=== PATIENT | male | born 1955 | race Caucasian/White ===

== ENCOUNTER → 2019-08-15 | Outpatient (REF) | payer MEDICARE, OTHER ==
[2019-08-15 18:28] LABS: APPEARANCE, URINE HAZY (CLEAR); BACTERIA, URINE AUTO NEGATIVE (NEGATIVE); BILIRUBIN, URINE AUTO NEGATIVE (NEGATIVE); BLOOD, URINE BLOOD 3+ (NEGATIVE); COLOR, URINE YELLOW (YELLOW); GLUCOSE, URINE (UA) AUTO NEGATIVE (NEGATIVE); KETONE, URINE AUTO NEGATIVE (NEGATIVE); LEUKOCYTE ESTERASE, URINE AUTO NEGATIVE (NEGATIVE); NITRITE, URINE AUTO NEGATIVE (NEGATIVE); PROTEIN, URINE AUTO NEGATIVE (NEGATIVE); RBC, URINE AUTO TNTC /HPF (0-3); SPECIFIC GRAVITY URINE AUTO 1.013 (1.002-1.035); SQUAMOUS EPITHELIAL CELL UR AU 0 /HPF (0-6); UROBILINOGEN, URINE AUTO 0.2 mg/dL (0.0-2.0); WBC, URINE AUTO 3 /HPF (0-3)
== END ==
LOC: M SMT 16:55
PROVIDERS: ATTEND Urology
DX: R31.0 Gross hematuria (principal)
CPT/HCPCS: 81001; 87086; G0463

== ENCOUNTER 2019-10-18 11:32 | Day surgery (SDC) | payer MEDICARE ==
[~2019-10-18] VITALS: Ht 170.2 cm; Wt 51.3 kg
[~2019-10-18 11:32] MED LIST: LR 1,000 ML IV ONE; ceFAZolin SOD 2 GM in IV 1 EA IV ONE
[2019-10-18] MEDS ORDERED: propofoL 200 MG/20 ML VIAL As Ordered ONE (14:47)
[2019-10-18] MEDS ORDERED: dexameTHASONE 4 MG/ML 1ML VIAL (J1100) As Ordered ONE (14:47)
[2019-10-18] MEDS ORDERED: ONDANSETRON 4MG/2ML VIAL (J2405) As Ordered ONE (14:47)
[2019-10-18] MEDS ORDERED: LIDOCAINE 2% INJ 100 MG/5 ML SDV (FOR ANES.) As Ordered ONE (14:47)
[2019-10-18] MEDS ORDERED: fentaNYL 100 MCG/2 ML INJECTION (J3010) As Ordered ONE ×2 (14:47→16:15)
[2019-10-18] MEDS ORDERED: MIDAZOLAM INJ 2 MG/2 ML VIAL (J2250) As Ordered ONE (14:47)
[2019-10-18] MEDS ORDERED: ROCURONIUM BROMIDE 50 MG/5 ML VIAL As Ordered ONE (14:48)
[2019-10-18] MEDS ORDERED: SUGAMMADEX SODIUM 500 MG/5 ML VIAL (BRIDION) As Ordered ONE (16:15)
[2019-10-18] MEDS ORDERED: ACETAMINOPHEN TAB 650MG DOSE (2X325MG) PO PRN (17:15)
[2019-10-18] MEDS ORDERED: LR 1,000 ML IV SCH (17:15)
[2019-10-18] MEDS ORDERED: fentaNYL 100 MCG/2 ML INJECTION (J3010) IV PRN (17:15)
[2019-10-18] MEDS: PERCOCET 5MG/325MG TAB PO PRN ×2 (17:16→18:30)
[2019-10-18] MEDS ORDERED: PERCOCET 5MG/325MG TAB As Ordered ONE (18:31)
[2019-10-18 18:45] VITALS: BP 143/84
--- NOTE | 2019-10-19 10:16 | RO ---
DATE OF PROCEDURE: 10/18/2019 PREPROCEDURE DIAGNOSIS: Bladder tumors. POSTPROCEDURE DIAGNOSIS: Bladder tumors. PROCEDURE: Cystoscopy, transurethral resection of bladder tumors (between 2-5 cm), examination under anesthesia. SURGEON: Dr. Da Lorenzo ADMINISTRATIVE SERVICES COORDINATOR: None. ANESTHESIA: General. OPERATIVE INDICATIONS: This is a 64-year-old male who was found to have a moderate sized collection of bladder tumors on office cystoscopy. He was brought to the operating room today for treatment. DESCRIPTION OF PROCEDURE: The patient was brought to the operating room where general anesthesia was induced. Prophylactic antibiotics were infused. He was then placed in dorsal lithotomy position and then a bimanual digital rectal examination under anesthesia was performed. It was notable for a mildly enlarged prostate with no nodules. The bladder was freely mobile and there were no palpable masses. The patient was prepped and draped in the usual sterile fashion. At this point, a resectoscope was inserted into the urethral meatus using the visual obturator. The bladder was then thoroughly examined. It was notable for an approximately 4 cm collection of bladder tumors on the right wall just above the level of the right ureteral orifice. At this point, the Gyrus loop was utilized to resect the bladder tumors completely. All the tumors were then removed from the bladder using the Normayetu evacuator. Once that was done, hemostasis was obtained using coagulation current. Of note, I did not have to resect over on top of the right ureteral orifice. The right ureteral orifice still effluxed clear urine without any difficulty. Once all the tumors were confirmed to be out of the bladder, the resectoscope was removed and an 18 Khmer Burk catheter was inserted into the bladder. The balloon was filled with 10 mL of sterile water. Then the catheter was connected to gravity drainage. This marked the conclusion of the procedure. The patient was then taken out of the dorsal lithotomy position, awakened from anesthesia and transported to the recovery room in stable condition. Estimated blood loss: 5 mL. Complications: None. Specimen: Bladder tumors. Plan: The patient will followup in the clinic in approximately 1 week for catheter removal and to discuss his pathology results. SADIA
== END 2019-10-18 19:02 | disposition home or self-care (01) ==
LOC: M SDC 11:32
PROVIDERS: ATTEND Urology
DX: C67.9 Malignant neoplasm of bladder, unspecified (principal); F43.10 Post-traumatic stress disorder, unspecified; F31.9 Bipolar disorder, unspecified; F41.9 Anxiety disorder, unspecified; F32.9 Major depressive disorder, single episode, unspecified; J44.9 Chronic obstructive pulmonary disease, unspecified; F17.218 Nicotine dependence, cigarettes, with other nicotine-induced disorders
CPT/HCPCS: 52235; 88305; J0690; J1100; J2250; J2405; J3010